=== PATIENT | male | born 1950 | race Caucasian/White ===

== ENCOUNTER 2017-01-01 08:27 | Outpatient (CLI) | payer MEDICARE, BC ==
[~2017-01-01] VITALS: Ht 182.9 cm; Wt 90.9 kg
--- NOTE | ~2017-01-01 | HEMODYNAMI ---
PATIENT:MARINA CRANDALL MEDICAL RECORD: [id number] : 48 LOCATION:D.CAT ADMISSION DATE: 01/01/17 Generatedon:01/01/201711:16 Patient name: MARINA CRANDALL Patient #: [id number] SSN: : 1950 Date of study: 01/01/2017 Page: Of Hemodynamic Procedure Report Patient Data Patient Demographics Procedure consent was obtained First Name: MARINA Gender: Male Last Name: KARLEY : 1950 [facility] Initial: E Age: 66 year(s) Patient #: [id number] Race: Additional ID: [id number] Contact details [address]: [address] [place] [address] State: [place] City: [place] Zip code: [address] Past Medical History Allergies Allergen Reaction Date Comments Reported Penicillins 06/16/2015 Other allergy 01/01/2017 n Admission Admission Data Admission Date: 01/01/2017 Admission Time: 8:27 Admit Source: Other Insurance Payor: Medicare, Private health insurance Height (in.): 72 BSA: 2.13 (m2) Height (cm.): 182.88 BMI: 27.12 (kg/m2) Weight (lbs.): 200 Weight (kg.): 90.72 Lab Results Lab Result Date: 01/01/2017 Lab Result Time: 8:55 Biochemistry Name Units Result Min Max BUN mg/dl 22 --(----)-* 7 18 Creatinine mg/dl 1.6 --(----)-* 0.6 1.3 CBC Name Units Result Min Max Hematocrit % 41.1 -*(----)-- 42 54 Hemoglobin g/dl 14.4 --(*---)-- 13.5 17.5 Procedure Procedure Types Cath Procedure Diagnostic Procedure LHC LHC w/Coronaries PCI Procedure Coronary Stent Initial Miscellaneous Procedures Moderate Sedation up to 45 minutes Procedure Description Procedure Date Procedure Date: 01/01/2017 Procedure Start Time: 10:54 Procedure End Time: 11:16 Procedure Staff Name Function Heladio Allen MD Performing Physician Nancy Deutsch RT Scrub Mayco Hackett RN Nurse Amrit Xavier RT Monitor Procedure Data Cath Procedure Fluoroscopy Diagnostic fluoroscopy Total fluoroscopy Time: 5.7 time: 5.7 min min Diagnostic fluoroscopy Total fluoroscopy dose: dose: 394.05 mGy 394.05 mGy Contrast Material Contrast Material Type Amount (ml) Isovue 300 117 Entry Location Entry Primary Successful Side Size Upsize Upsize Entry Closure Roberts ccessful Closure Location (Fr) 1 (Fr) 2 (Fr) Remarks Device Remarks Radial Right 6 Fr Mechanical artery Short Compression Estimated blood loss: 10 ml Diagnostic catheters Device Type Used For End Catheter Placement Terumo 5Fr [place] 110cm Procedure catheter Procedure Complications No complications Procedure Medications Medication Administration Route Dosage Oxygen NC 2 l/min Heparin Flush Bag added to field 2 bags (1000units/500ml NS) 0.9% NaCl I.V. 100 ml/hr Radial Cocktail added to field 1 syringe (Verapomil 2mg/Nitro 400mcg/Heparin 1500units) Fentanyl I.V. 50 mcg Versed I.V. 1 mg Radial Cocktail I.A. 1 syringe (Verapomil 2mg/Nitro 400mcg/Heparin 1500units) Fentanyl I.V. 50 mcg Versed I.V. 1 mg Heparin Bolus I.V. 4000 units Plavix P.O. 75 mg Hemodynamics Rest BSA: 2.13 (m2) HGB: 14.4 (g/dl) O2 Consumption: Estimated: 241.24 (ml/min) O2 Co nsumption indexed: Estimated:113.26 (ml/min/m) Heart Rate: 62 (bpm) Snapshots Pre Cath Intra NCS Post Cath Vital Signs Time Heart Resp SPO2 NIBP (mmHg) Rhythm Pain Sedation Rate (ipm) (%) Status Level (bpm) 10:38:56 66 17 98 127/84(102) NSR 0 (11) 10(A) , No pain 10:43:08 63 20 100 126/86(98) NSR 0 (11) 10(A) , No pain 10:47:20 64 16 99 122/81(100) NSR 0 (11) 10(A) , No pain 10:51:32 58 18 100 123/78(91) NSR 0 (11) 10(A) , No pain 10:55:48 59 18 97 112/63(95) NSR 0 (11) 9(A) , No pain 10:59:55 63 18 94 108/68(85) NSR 0 (11) 9(A) , No pain 11:04:05 62 18 94 112/64(85) NSR 0 (11) 9(A) , No pain 11:08:17 56 19 96 120/64(84) NSR 0 (11) 9(A) , No pain 11:12:33 58 18 98 105/68(79) NSR 0 (11) 9(A) , No pain 11:15:50 57 17 98 111/61(86) NSR 0 (11) 9(A) , No pain Medications Time Medication Route Dose Verified Delivered Reason Note s Effectiveness by by 10:42:50 Oxygen NC 2 l/min Mayco Mao Per physician Lew Hackett RN RN 10:43:07 Heparin Flush added 2 bags Mayco Mao used for Bag to Lew Hackett RN procedure (1000units/500ml RN NS) 10:43:21 0.9% NaCl I.V. 100 Mayco Paytony Per physician ml/hr Lew Hackett RN RN 10:51:53 Radial Cocktail added 1 Mayco Mao used for (Verapomil to syringe Lew Hackett RN procedure 2mg/Nitro field RN 400mcg/Heparin 1500units) 10:52:00 Fentanyl I.V. 50 mcg Mayco Mao for sedation Lew Hackett RN RN 10:52:08 Versed I.V. 1 mg Mayco Mao for sedation Lew Hackett RN RN 10:55:03 Radial Cocktail I.A. 1 Mayco Blairrey for (Verapomil syringe Lew Allen MD vasodilation 2mg/Nitro RN 400mcg/Heparin 1500units) 10:56:16 Fentanyl I.V. 50 mcg Mayco Mao for sedation Lew Hackett RN RN 10:56:21 Versed I.V. 1 mg Mayco Paytony for sedation Lew Hackett RN RN 11:01:22 Heparin Bolus I.V. 4000 Mayco Mao for units Lew Hackett RN anticoagulation RN 11:11:59 Plavix P.O. 75 mg Mayco Paytony for Hackett Hackett RN antiplatelet RN therapy Procedure Log Time Note 9:36:13 Informed consent obtained and on chart 9:37:19 Admit Source: Other 9:37:42 Insurance Payor : Private health insurance, Medicare 9:38:43 Diagnostic Cath status Elective 9:38:46 Time tracking: Regular hours 9:38:49 Plan of Care:Hemodynamics will remain stable., Cardiac rhythm will remain stable., Comfort level will be maintained., Respiratory function will remain adequate., Patient/ family verbilizes understanding of procedure., Procedure tolerated without complication., Recovers from procedure without complications.. 9:38:54 ACC Patient presents with Stable Angina CCS Anginal Class 2--Slight limitation of ordinary activity. 9:39:02 H&P Date Dictated: 12/14/2016 Within 30 days and on chart., H&P Addendum completed by physician on day of procedure. (MUST COMPLETE FOR ALL OUTPATIENTS). 10:18:45 Mayco Hackett RN sent for patient. Start room use. 10:31:09 Patient received from Pre/Post Procedure Room to CCL 3 Alert and oriented. Tansferred to table in Supine position. 10:31:10 Warm blankets applied, and toyin hugger turned on for patient comfort. 10:31:11 Correct patient and procedure confirmed by team. 10:31:11 ECG and BP/O2 sat monitors applied to patient. 10:37:50 Vital chart was started 10:42:50 Oxygen 2 l/min NC was administered by Myaco Hackett RN; Per physician; 10:43:07 Heparin Flush Bag (1000units/500ml NS) 2 bags added to field was administered by Mayco Hackett RN; used for procedure; 10:43:21 0.9% NaCl 100 ml/hr I.V. was administered by Mayco Hackett RN; Per physician; 10:45:40 Baseline sample Acquired. 10:45:44 Rhythm: sinus rhythm 10:45:46 Full Disclosure recording started 10:45:47 Pre-procedure instructions explained to patient. 10:45:48 Pre-op teaching completed and patient verbalized understanding. 10:45:49 Family in waiting room. 10:45:50 Patient NPO since Midnight. 10:45:57 Patient allergic to Other allergypcn 10:45:59 Is the patient allergic to Iodine/contrast media? No. 10:46:01 Is patient on blood thinner?Yes 10:46:03 ACC The patient was administered the following blood thiners within the last 24 hours: ACCPlavix 10:46:05 Patient diabetic? Yes. 10:46:06 If diabetic: On Metformin? Yes 10:46:09 If on Metformin: Last Dose? 12/30/2016 10:46:11 Previous problem with sedation/anesthesia? No ? 10:46:12 Snore? Yes 10:46:13 Sleep apnea? No 10:46:14 Deviated septum? No 10:46:15 Opens mouth fully? Yes 10:46:16 Sticks out tongue? Yes 10:46:17 Airway obstruction? No ? 10:46:38 Dentures? No ? 10:46:41 Modified Tyrese's test Ulnar < 7 seconds 10:46:44 Patient pain scale 0/10 ?. 10:46:47 IV patent on arrival in right forearm with 0.9% NaCl at [facility]. 10:47:32 Lab Result : BUN 22 mg/dl 10:47:32 Lab Result : Hemoglobin 14.4 g/dl 10:47:32 Lab Result : Creatinine 1.6 mg/dl 10:47:32 Lab Result : Hematocrit 41.1 % 10:47:34 Lab results completed and on chart. 10:47:36 Right Radial & Right Groin area was prepped with chlora-prep and draped in sterile fashion 10:47:37 Alarms reviewed by R. N. 10:47:37 Sharps counted by scrub and verified by R.N. 10:47:41 Use device set Radial Dx 10:47:42 Tegaderm 4 x 4 opened to sterile field. 10:47:43 Acist Manifold opened to sterile field. 10:47:43 Acist Hand Control opened to sterile field. 10:47:44 Acist Syringe opened to sterile field. 10:47:45 Medline Cath Pack opened to sterile field. 10:47:45 Bag Decanter opened to sterile field. 10:47:46 Terumo 6Fr Slender Glidesheath opened to sterile field. 10:47:46 [place] 260cm J .035 wire opened to sterile field. 10:48:09 Physician arrived 10:48:11 --------ALL STOP TIME OUT------ 10:48:12 Final Timeout: patient, procedure, and site verified with staff and physician. All members of the team are in agreement. 10:48:14 Right Radial & Right Groin site verified by team. 10:48:17 Physical assessment completed. ASA score P 2 - A patient with mild systemic disease as per Heladio Allen MD. 10:48:20 Sedation plan: IV Moderate Sedation Versed, Fentanyl 10:51:53 Radial Cocktail (Verapomil 2mg/Nitro 400mcg/Heparin 1500units) 1 syringe added to field was administered by Myaco Hackett RN; used for procedure; 10:52:00 Fentanyl 50 mcg I.V. was administered by Mayco Hackett RN; for sedation; 10:52:08 Versed 1 mg I.V. was administered by Mayco Hackett RN; for sedation; 10:52:32 Zero performed for pressure channel P1 10:52:36 Zero performed for pressure channel P1 10:54:12 Procedure started. 10:54:33 Local anesthetic to right radial artery with Lidocaine 2% by Heladio Allen MD.INITIAL ACCESS ONLY 10:55:00 A 6 Fr Short sheath was inserted into the Right Radial artery 10:55:03 Radial Cocktail (Verapomil 2mg/Nitro 400mcg/Heparin 1500units) 1 syringe I.A. was administered by Heladio Allen MD; for vasodilation; 10:55:12 Zero performed for pressure channel P1 10:55:18 Zero performed for pressure channel P1 10:55:30 Zero performed for pressure channel P1 10:55:38 Zero performed for pressure channel P1 10:56:16 Fentanyl 50 mcg I.V. was administered by Mayco Hackett RN; for sedation; 10:56:21 Versed 1 mg I.V. was administered by Mayco Hackett RN; for sedation; 10:56:25 A [employer] 5Fr [place] 110cm catheter was advanced over the wire and used for Procedure. 10:56:30 LV gram done using BURR 10:56:31 LV hemodynamics recorded. 10:56:34 Injector settings: Ml/sec: 5, Volume: 15, 10:56:40 EF : 60 % 10:57:02 Patient Height : 182.88 cm 10:57:11 Patient Weight : 90.72 kg 10:57:17 LCA angiography performed. 10:59:32 RCA angiography performed. 10:59:34 Catheter removed. 10:59:43 Cordis 6FR XBLAD 3.5 guide catheter opened to sterile field. 10:59:50 Topete Whisper J 300cm 0.014 guide wire opened to sterile field. 11:00:30 Avtal24 BasixCompak Inflation Kit opened to sterile field. 11:00:44 6 Fr xblad 3.5 guide catheter was inserted over the wire 11::22 Heparin Bolus 4000 units I.V. was administered by Mayco Hackett RN; for anticoagulation; 11:04:00 Guide Catheter removed. unable to get back-up support 11:04:31 Cordis 6FR XB 4.0 guide catheter opened to sterile field. 11:04:47 6 Fr xb 4 guide catheter was inserted over the wire 11:06:34 whisper wire advanced. 11:06:35 Wire advanced across lesion. 11:06:58 Inflation Number: 1 A Medtronic Resolute 2.25 X 12 stent was prepped and advanced across the Mid CX. The stent was deployed at 17 GERI for 0:10 (min:sec). 11:07:50 Stent catheter was removed intact over wire. 11:09:19 Inflation Number: 2 A Medtronic Resolute 2.5 X 18 stent was prepped and advanced across the Mid CX. The stent was deployed at 17 GERI for 0:10 (min:sec). 11:09:30 Stent catheter was removed intact over wire. 11:10:43 Stent catheter was removed intact over wire. 11:10:44 Wire removed. 11::44 Guide catheter removed. 11::59 Plavix 75 mg P.O. was administered by Mayco Hackett RN; for antiplatelet therapy; 11:13:07 Terumo TR Band Standard opened to sterile field. 11:13:17 Sheath removed intact; hemostasis achieved with Mechanical Compression to the Right Radial artery. 11:13:19 Procedure ended.(Physican Out) 11:13:30 Fluoroscopy time 05.70 minutes. 11:13:39 Fluoroscopy dose: 394.05 mGy 11:13:39 Flurop Dose total: 394.05 11:14:36 Contrast amount:Isovue 300 117ml. 11:14:37 Sharps counted by scrub and verified by R.N. 11:14:41 TR band inflated with 11cc of air. 11:14:43 Insertion/operative site no bleeding no hematoma. 11:14:49 Post right radial artery:stable, soft, clean and dry 11:14:52 Post Procedure Pulses reassessed and unchanged 11:15:00 Post-procedure physical assessment completed. ASA score P 2 - A patient with mild systemic disease as per Heladio Allen MD. 11:15:02 Post procedure rhythm: unchanged. 11:15:05 Estimated blood loss: 10 ml 11:15:06 Post procedure instruction explained to patient.Patient verbalizes understanding. 11:15:06 Patient needs reinforcement of post procedure teaching. 11:15:32 Procedure type changed to Cath procedure, Diagnostic procedure, LHC, LHC w/Coronaries, PCI procedure, Coronary Stent Initial, Miscellaneous Procedures, Moderate Sedation up to 45 minutes 11:16:08 Procedure and supply charges have been captured, reviewed, submitted and are correct. 11:16:10 Procedure Complication : No complications 11:16:12 Vital chart was stopped 11:16:12 See physician's report for complete and final results. 11:16:14 Report given to Pre/Post Procedure Room. 11:16:16 Patient transfered to Pre/Post Procedure Room with Stretcher. 11:16:17 Procedure ended. 11:16:17 Full Disclosure recording stopped 11:16:27 ACC-PCI Only Patient was given prescriptions, or instructed by Heladio Allen MD to start/continue the following medications upon discharge: Plavix 11:16:28 End room use (Document Last) Intervention Summary Intervention Notes Time ActionType Lesion and Equipment Action# Pressure Duration Attributes Used 11:06:58 Place stent Mid CX Medtronic 1 17 00:10 Resolute 2.25 X 12 stent 11:09:19 Place stent Mid CX Medtronic 2 17 00:10 Resolute 2.5 X 18 stent Device Usage Item Name Manufacture Quantity Catalog Hospital Part Current Minimal Lot# / Number Charge Number Stock Stock Serial# Code Tegaderm 4 1 [id number] 194126 [id number] 5 x 4 Acist Acist 1 91499 252043 357488 476694 5 Manifold Medical [employer] Inc Acist Hand Acist 1 53522 350550 011928 340613 5 Control Medical Systems Inc Acist Acist 1 16311 972509 500331 440908 20 Syringe Medical Systems Inc Medline Cardinal 1 [id number] 607332 38822 319261 5 Cath Pack Health Bag Microtek 1 2002S 093447 85884 234719 5 Decanter Medical Inc. Terumo 6Fr Terumo 1 [id number] 263199 786667 573887 [address] [facility] 1 080986 861872 664277 877838 30 260cm J .035 wire Terumo 5Fr Terumo 1 40-6140 963661 109038 115991 5 [place] 110cm catheter Cordis 6FR Cardinal 1 [id number] 262742 899422 636255 10 XBLAD 3.5 Health guide catheter Topete Topete 1 [id number] 510698 588282 517006 5 Whisper J Vascular 300cm 0.014 guide wire Merit Merit 1 [id number] 544311 067427 340187 15 BasixCompak Medical Inflation Kit Cordis 6FR Cardinal 1 [id number] 497043 862456 280677 2 XB 4.0 Health guide catheter Medtronic Medtronic 1 [id number] 071831 622734 4 [id number] Resolute 2.25 X 12 stent Medtronic Medtronic 1 [id number] 473294 906278 2 [id number] Resolute 2.5 X 18 stent Terumo TR Terumo 1 [id number] 563612 213198 496733 40 Band Standard Signature Audit [place] Stage Time Signature Unsigned Intra-Procedure 01/01/2017 Amrit Xavier 11:16:45 AM RT(R) Signatures Monitor : Amrit Xavier RT Signature : Date : Time : [facility] [address] [place] [address]
[~2017-01-01 08:27] MED LIST: AVAPRO150 MG PO; BAYER CHEWABLE81 MG PO; GLUCOPHAGE500 MG PO; HYDROCHLOROTHIA25 MG PO; LOVASTATIN20 MG PO; ONGLYZA5 MG PO; PLAVIX75 MG PO
[2017-01-01] MEDS ORDERED: PACERONE200 MG PO (08:53)
[2017-01-01 08:59] VITALS: BP 146/72; Ht 182.9 cm; Wt 90.9 kg
[2017-01-01 09:31] LABS: BASOPHILS 0.3 % (0.0-2.0); EOSINOPHILS 1.8 % (0-7); HEMATOCRIT 41.1 % (42.0-54.0); HEMOGLOBIN 14.4 g/dL (13.5-17.5); IMMATURE GRANULOCYTES 0.3 % (0-5); LYMPHOCYTES 16.4 % (15-50); MCH 30.1 pg (26.0-34.0); MCV 85.8 fL (80.0-100.0); MEAN PLATELET VOLUME 10.1 fL (7.4-10.4); MONOCYTES 7.2 % (2-11); PLATELET COUNT 190 10x3/uL (130-400); RBC 4.79 10x6/uL (4.20-6.10); WBC 6.7 10x3/uL (4.8-10.8)
[2017-01-01 09:52] LABS: CALCIUM 9.4 mg/dL (8.5-10.1); CARBON DIOXIDE 30.1 mmol/L (21.0-32.0); CREATININE - SERUM 1.6 mg/dL (0.6-1.3); POTASSIUM - SERUM 4.1 mmol/L (3.5-5.1)
--- NOTE | 2017-01-01 11:46 | NUR ---
VSS WITH CHEST PAIN DENIED TR BAND TO R/WRIST CDI NO BLEEDING NO HEMATOMA NOTED INSTRUCTED PATIENT TO KEEP RUE STRAIGHT NO BENDING OR FLEXING OF WRIST
--- NOTE | 2017-01-01 12:21 | NUR ---
NSR W NO C/O CHEST PAIN. PULSES PALP X 4. R WRIST TR BAND C/D/I WITH NO HEMATOMA OR BLEEDING. AT BEDSIDE. TAUTH AT BEDSIDE TO DISCUSS RESULTS WITH PATIENT. PATIENT TO RETURN NEXT SUNDAY FOR PCI.
--- NOTE | 2017-01-01 12:54 | NUR ---
NSR WITH CHEST PAIN DENIED TR BAND TO R/WRIST CDI NO BLEEDING NO HEMATOMA NOTED
--- NOTE | 2017-01-01 13:39 | NUR ---
VSS WITH CHEST PAIN DENIED TR BAND TO R/WRIST CDI NO BLEEDING NO HEMATOMA NOTED FAMILY AT SIDE
--- NOTE | 2017-01-01 14:12 | NUR ---
NO CHANGE IN ASSESSMENT VSS
--- NOTE | 2017-01-01 14:28 | NUR ---
2 CC AIR REMOVED FROM TR BAND WITH NO BLEEDING NOTED
--- NOTE | 2017-01-01 15:03 | NUR ---
2 CC AIR REMOVED FROM TR BAND WITH NO BLEEDING NOTED. PIV REMOVED WITH DRESSING APPLIED. CHEST PAIN IS DENIED PATIENT UP TO GET DRESSED FOR DISCHARGE HOME
--- NOTE | 2017-01-01 15:44 | NUR ---
TR BAND REMOVED WITH NO BLEEDING NO HEMATOMA NOTED. DISCHARGE INSTRUCTIONS GONE OVER WITH PATIENT AND . LEFT VIA WC TO PARKING FOR TRANSPORT HOME
--- NOTE | 2017-01-09 14:37 | OP ---
PATIENT NAME: MARINA CRANDALL MEDICAL RECORD: [id number] :48 LOCATION:D.CAT ADMISSION DATE: SURGEON: DORIS TILLMAN MD DATE OF OPERATION: 01/01/2017 PROCEDURES: 1. PTCA stent left circumflex. 2. Left heart catheterization. 3. Selective coronary angiography. 4. Left ventriculogram. PROCEDURE IN DETAIL: After informed consent was obtained and after a detailed explanation of the risks, benefits as well as alternative therapies, the patient elected to proceed with angiogram and angioplasty. The right radial area was prepped and draped in normal sterile fashion. The right radial artery was cannulated via modified Seldinger technique with placement of 6-Telugu sheath. All catheters exchanged through this sheath. FINDINGS: The left ventriculogram was performed in standard 30-degree BURR view reveals preserved cardiac wall motion, ejection fraction is 60%. SELECTIVE CORONARY ANGIOGRAPHY: 1. Left main showed no significant angiographic disease. 2. Left anterior descending has previously placed stent that is patent; however, the diagonal has a new 90% stenosis. 3. The left circumflex has 80% to 90% stenosis in the mid and mid distal vessel. 4. 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 There is a hazy area in the mid vessel that would be better delineated by intravascular ultrasound. PTCA STENT OF THE LEFT CIRCUMFLEX: The stent used was a 2.5 x 18 and a 2.25 x 12 both Resolute stents. Result was 0% residual stenosis. OVERALL IMPRESSION: Successful percutaneous transluminal coronary angioplasty stent of the left circumflex going from 90% initial stenosis to 0% residual. PLAN: Intravascular ultrasound of the RCA and PTCA stent of the LAD diagonal in the near future. TRANSINT:[id number] Voice Confirmation ID: [id number] DOCUMENT ID: [id number] DORIS TILLMAN MD at 1437 CC: [id number] DICTATION DATE: 01/01/17 1113 STAGE SETTINGS PAINTER: 01/01/17 1313 DEP CLI 01/01/17 [place] [id number]
== END 2017-01-01 15:48 ==
LOC: D.CATH 08:27
PROVIDERS: Internal Medicine Interventional Cardiology
DX: I25.119 Atherosclerotic heart disease of native coronary artery with unspecified angina pectoris (principal)
CPT/HCPCS: 93458; C9600

== ENCOUNTER 2017-01-08 08:36 | Outpatient (CLI) | payer MEDICARE, BC ==
[~2017-01-08] VITALS: Ht 182.9 cm; Wt 90.9 kg
--- NOTE | ~2017-01-08 | HEMODYNAMI ---
PATIENT:MARINA CRANDALL MEDICAL RECORD: [id number] : 48 LOCATION:D.CAT ADMISSION DATE: 01/08/17 Generatedon:01/08/201710:38 Patient name: MARINA CRANDALL Patient #: [id number] SSN: : 1950 Date of study: 01/08/2017 Page: Of Hemodynamic Procedure Report Patient Data Patient Demographics Procedure consent was obtained First Name: MARINA Gender: Male Last Name: KARLEY : 1950 Middle Initial: E Age: 66 year(s) Patient #: [id number] Race: Additional ID: [id number] Contact details Address: [address] [place] [address] State: [place] City: [place] Zip code: [address] Past Medical History Allergies Allergen Reaction Date Comments Reported Penicillins 06/16/2015 Other allergy 01/01/2017 pcn Penicillins 01/08/2017 Admission Admission Data Admission Date: 01/08/2017 Admission Time: 8:36 Height (in.): 72 BSA: 2.13 (m2) Height (cm.): 182.88 BMI: 27.12 (kg/m2) Weight (lbs.): 200 Weight (kg.): 90.72 Lab Results Lab Result Date: 01/08/2017 Lab Result Time: 0:00 Biochemistry Name Units Result Min Max BUN mg/dl 26 --(----)-* 7 18 Creatinine mg/dl 1.5 --(----)-* 0.6 1.3 CBC Name Units Result Min Max Hemoglobin g/dl 15.6 --(--*-)-- 13.5 17.5 Procedure Procedure Types Cath Procedure Diagnostic Procedure FFR/IVUS Intra-Coronary IVUS Initial PCI Procedure Coronary Stent Initial Miscellaneous Procedures Moderate Sedation up to 15 minutes Procedure Description Procedure Date Procedure Date: 01/08/2017 Procedure Start Time: 10:25 Procedure End Time: 10:37 Procedure Staff Name Function Heladio Allen MD Performing Physician Mehreen Bates RN Nurse Anthony Urbano RT Monitor Dioni Rey RT Scrub Procedure Data Cath Procedure Fluoroscopy Diagnostic fluoroscopy Total fluoroscopy Time: 2.1 time: 2.1 min min Diagnostic fluoroscopy Total fluoroscopy dose: 209 dose: 209 mGy mGy Contrast Material Contrast Material Type Amount (ml) Isovue 300 43 Entry Location Entry Primary Successful Side Size Upsize Upsize Entry Closure Roberts ccessful Closure Location (Fr) 1 (Fr) 2 (Fr) Remarks Device Remarks Radial Right 6 Fr Mechanical artery Short Compression Procedure Complications No complications Procedure Medications Medication Administration Route Dosage Oxygen NC 2 l/min Heparin Flush Bag added to field 2 bags (1000units/500ml NS) Lidocaine 2% added to field 20 Radial Cocktail added to field 1 syringe (Verapomil 2mg/Nitro 400mcg/Heparin 1500units) Versed I.V. 1 mg Fentanyl I.V. 50 mcg Versed I.V. 1 mg Fentanyl I.V. 50 mcg Versed I.V. 0.5 mg Fentanyl I.V. 50 mcg Heparin Bolus I.V. 4000 units Radial Cocktail I.A. 1 syringe (Verapomil 2mg/Nitro 400mcg/Heparin 1500units) Hemodynamics Rest BSA: 2.13 (m2) HGB: 15.6 (g/dl) O2 Consumption: Estimated: 244.98 (ml/min) O2 Co nsumption indexed: Estimated:115.01 (ml/min/m) Heart Rate: 67 (bpm) Snapshots Pre Cath Intra NCS Post Cath Vital Signs Time Heart Resp SPO2 NIBP (mmHg) Rhythm Pain Sedation Rate (ipm) (%) Status Level (bpm) 10:10:14 68 16 99 125/76(96) NSR 0 (11) 10(A) , No pain 10:14:24 66 13 99 135/78(97) NSR 0 (11) 10(A) , No pain 10:18:39 62 16 96 115/75(94) NSR 0 (11) 10(A) , No pain 10:22:48 59 17 97 127/64(106) NSR 0 (11) 10(A) , No pain 10:27:06 60 16 96 113/55(83) NSR 0 (11) 9(A) , No pain 10:31:14 67 16 98 104/67(99) NSR 0 (11) 9(A) , No pain 10:34:57 63 15 96 124/59(102) NSR 0 (11) 9(A) , No pain Medications Time Medication Route Dose Verified Delivered Reason Note s Effectiveness by by 10:10:05 Oxygen NC 2 l/min Heladio Mehreen Per physician Alejandro Bates RN 10:10:13 Heparin Flush added 2 bags Heladio Leija used for Bag to Alejandro Allen MD procedure (1000units/500ml field NS) 10:10:22 Lidocaine 2% added 20ml Heladio Heladio used for to vial Alejandro Allen MD procedure field 10:10:29 Radial Cocktail added 1 Heladio Heladio used for (Verapomil to syringe Alejandro Allen MD procedure 2mg/Nitro field 400mcg/Heparin 1500units) 10:22:18 Versed I.V. 1 mg Heladio Mehreen for anxiety Alejandro Bates RN 10:22:25 Fentanyl I.V. 50 mcg Heladio Mehreen for sedation Alejandro Bates RN 10:24:27 Versed I.V. 1 mg Heladio Mehreen for anxiety Alejandro Bates RN 10:24:43 Fentanyl I.V. 50 mcg Heladio Mehreen for sedation Alejandro Bates RN 10:25:45 Radial Cocktail I.A. 1 Heladio Heladio for hypokalemia (Verapomil syringe Alejandro Allen MD 2mg/Nitro 400mcg/Heparin 1500units) 10:27:30 Versed I.V. 0.5 mg Heladio Mehreen for sedation Alejandro Bates RN 10:27:38 Fentanyl I.V. 50 mcg Heladio Mehreen for sedation Alejandro Bates RN 10:27:47 Heparin Bolus I.V. 4000 Heladio Mehreen for dose units Alejandro Bates RN anticoagulation verified [facility] dr allen Procedure Log Time Note 9:57:02 Dioni Rey RT(R) sent for patient. Start room use. 9:57:03 Time tracking: Regular hours 9:57:08 Plan of Care:Hemodynamics will remain stable., Cardiac rhythm will remain stable., Comfort level will be maintained., Respiratory function will remain adequate., Patient/ family verbilizes understanding of procedure., Procedure tolerated without complication., Recovers from procedure without complications.. 10:09:09 Vital chart was started 10:10:05 Oxygen 2 l/min NC was administered by Mehreen Bates RN; Per physician; 10:10:13 Heparin Flush Bag (1000units/500ml NS) 2 bags added to field was administered by Heladio Allen MD; used for procedure; 10:10:22 Lidocaine 2% 20ml vial added to field was administered by Heladio Allen MD; used for procedure; 10:10:29 Radial Cocktail (Verapomil 2mg/Nitro 400mcg/Heparin 1500units) 1 syringe added to field was administered by Heladio Allen MD; used for procedure; 10:16:44 Patient received from Pre/Post Procedure Room to CCL 2 Alert and oriented. Tansferred to table in Supine position. 10:16:45 Warm blankets applied, and toyin hugger turned on for patient comfort. 10:16:46 Correct patient and procedure confirmed by team. 10:16:47 Signed procedure consent form obtained from patient. 10:16:48 ECG and BP/O2 sat monitors applied to patient. 10:16:49 Baseline sample Acquired. 10:16:51 Rhythm: sinus rhythm 10:16:52 Full Disclosure recording started 10:17:30 H&P Date Dictated: 01/08/2017 Within 30 days and on chart., H&P Addendum completed by physician on day of procedure. (MUST COMPLETE FOR ALL OUTPATIENTS). 10:17:31 Pre-procedure instructions explained to patient. 10:17:32 Pre-op teaching completed and patient verbalized understanding. 10:17:34 Family in patients room. 10:17:36 Patient NPO since Midnight. 10:17:42 Patient allergic to Penicillins 10:17:44 Is the patient allergic to Iodine/contrast media? No. 10:17:48 Is patient on blood thinner?Yes 10:17:50 ACC The patient was administered the following blood thiners within the last 24 hours: ACCPlavix 10:17:52 Patient diabetic? Yes. 10:17:53 If diabetic: On Metformin? Yes 10:17:56 If on Metformin: Last Dose? 01/06/2017 10:17:57 ----Pre-sedation anethsthesia assessment.---- 10:17:59 Previous problem with sedation/anesthesia? No ? 10:18:00 Snore? Yes 10:18:02 Sleep apnea? Yes 10:18:03 Deviated septum? No 10:18:04 Opens mouth fully? Yes 10:18:05 Sticks out tongue? Yes 10:18:07 Airway obstruction? No ? 10:18:09 Dentures? No ? 10:18:11 Pre procedure: right dorsailis pedis pulse 2+ Normal; easily identifiable; not easily obliterated 10:18:13 Modified Tyrese's test Ulnar < 7 seconds 10:18:16 Patient pain scale 0/10 ?. 10:18:21 IV patent on arrival in left hand with 0.9% NaCl at 10ml/hr. 10:19:51 Lab Result : BUN 26 mg/dl 10:19:51 Lab Result : Creatinine 1.5 mg/dl 10:19:51 Lab Result : Hemoglobin 15.6 g/dl 10:19:54 Lab results completed and on chart. 10:19:57 Right Radial & Right Groin area was prepped with chlora-prep and draped in sterile fashion 10:19:58 Alarms reviewed by R. N. 10:19:58 Sharps counted by scrub and verified by R.N. 10:19:59 Physician paged 10:20:05 Use device set Radial PCI 10:20:06 Acist Syringe opened to sterile field. 10:20:07 Acist Hand Control opened to sterile field. 10:20:07 Bag Decanter opened to sterile field. 10:20:07 Medline Cath Pack opened to sterile field. 10:20:08 Merit BasixCompak Inflation Kit opened to sterile field. 10:20:08 Terumo 6Fr Slender Glidesheath opened to sterile field. 10:20:09 [place] 260cm Straight .035 wire opened to sterile field. 10:20:10 Acist Manifold opened to sterile field. 10:20:10 Tegaderm 4 x 4 opened to sterile field. 10:20:19 Topete Whisper J 300cm 0.014 guide wire opened to sterile field. 10:20:20 [place]ag[place]e IVUS Catheter opened to sterile field. 10:21:51 --------ALL STOP TIME OUT------ 10:21:51 Final Timeout: patient, procedure, and site verified with staff and physician. All members of the team are in agreement. 10::53 Right Radial & Right Groin site verified by team. 10::56 Physical assessment completed. ASA score P 2 - A patient with mild systemic disease as per Heladio Allen MD. 10:22:00 Sedation plan: IV Moderate Sedation Versed, Fentanyl 10::18 Versed 1 mg I.V. was administered by Mehreen Bates RN; for anxiety; 10::25 Fentanyl 50 mcg I.V. was administered by Mehreen Bates RN; for sedation; 10::27 Versed 1 mg I.V. was administered by Mehreen Bates RN; for anxiety; 10::43 Fentanyl 50 mcg I.V. was administered by Mehreen Bates RN; for sedation; 10::06 Procedure started. 10::23 Local anesthetic to right femoral artery with Lidocaine 2% by Heladio Allen MD.INITIAL ACCESS ONLY 10:25:34 A 6 Fr Short sheath was inserted into the Right Radial artery 10::39 Zero performed for pressure channel P1 10::45 Radial Cocktail (Verapomil 2mg/Nitro 400mcg/Heparin 1500units) 1 syringe I.A. was administered by Heladio Allen MD; for hypokalemia; 10::14 6 Fr AR 2 guide catheter was inserted over the wire 10::22 Medtronic Launcher 6Fr AR 2.0 guide catheter opened to sterile field. 10:27:06 WHISPER wire advanced. 10:27:09 FFR/IVUS 10:27:10 IVUS catheter advanced over wire. 10:27:12 IVUS pass to RCA lesion performed. 10::30 Versed 0.5 mg I.V. was administered by Mehreen Bates RN; for sedation; 10::38 Fentanyl 50 mcg I.V. was administered by Mehreen Bates RN; for sedation; 10::47 Heparin Bolus 4000 units I.V. was administered by Mehreen Bates RN; for anticoagulation; dose verified wtih dr allen 10:30:04 IVUS catheter removed over wire. 10:30:14 ACC PCI Site: mRCA has 74.2% stenosis. 10:30:18 ACC Pre-intervention SHAWN Flow is 3. 10:30:59 Patient Height : 182.88 cm 10:31:00 Patient Weight : 90.72 kg 10:31:47 Inflation Number: 1 A Medtronic Integrity 3.5 X 22 stent was prepped and advanced across the Mid RCA. The stent was deployed at 17 GERI for 0:12 (min:sec). 10:32:16 ACC Post-intervention SHAWN Flow is 3. 10:32:16 Stent catheter was removed intact over wire. 10:32:17 Wire removed. 10:32:18 Guide catheter removed. 10:32:23 Contrast amount:Isovue 300 43ml. 10:32:29 Sheath removed intact; hemostasis achieved with Mechanical Compression to the Right Radial artery. 10:32:30 Procedure ended.(Physican Out) 10:33:32 Fluoroscopy time 02.10 minutes. 10:33:36 Fluoroscopy dose: 209 mGy 10:33:36 Flurop Dose total: 209 10:33:37 Sharps counted by scrub and verified by R.N. 10:33:39 TR band inflated with 10cc of air. 10:33:40 Insertion/operative site no bleeding no hematoma. 10:33:47 Post right radial artery:stable 10:33:48 Post Procedure Pulses reassessed and unchanged 10:33:51 Post procedure rhythm: sinus rhythm 10:33:53 Post procedure instruction explained to patient.Patient verbalizes understanding. 10:34:30 Terumo TR Band Standard opened to sterile field. 10:36:00 Procedure and supply charges have been captured, reviewed, submitted and are correct. 10:36:11 Procedure Complication : No complications 10:37:18 Vital chart was stopped 10:37:18 See physician's report for complete and final results. 10:37:20 Report given to Pre/Post Procedure Room. 10:37:23 Patient transfered to Pre/Post Procedure Room with Stretcher. 10:37:25 Procedure ended. 10:37:25 Full Disclosure recording stopped 10:37:28 End room use (Document Last) Intervention Summary Intervention Notes Time ActionType Lesion and Equipment Action# Pressure Duration Attributes Used 10::47 Place stent Mid RCA Medtronic 1 17 00:12 Integrity 3.5 X 22 stent Device Usage Item Name Manufacture Quantity Catalog Hospital Part Current Minimal Lot# / Number Charge Number Stock Stock Serial# Code Acist Acist 1 39079 213808 613990 262198 20 Syringe Medical Systems Inc Acist Hand Acist 1 96963 576862 090579 121067 5 Control Medical Systems Inc Bag Microtek 1 2002S 644325 53489 294495 5 Decanter Medical Inc. Medline Cardinal 1 [id number] 628249 34822 963175 5 Browsarity [facility] Merit 1 [id number] 815251 116160 804839 15 Wecash Medical Inflation Kit Terumo 6Fr Terumo 1 [id number] 443406 959187 576222 [address] [place] 1 604926 542189 269183 380039 1 260cm Straight .035 wire Acist Acist 1 45607 328503 761543 346178 5 Manifold Medical Systems Inc Tegaderm 4 3M 1 1626W 664434 629970 051075 5 x 4 Topete Topete 1 [id number] 067109 349335 378941 5 Whisper J Vascular 300cm 0.014 guide wire [place] 1 [id number] 506006 975902 401295 8 [place] IVUS Catheter Medtronic Medtronic 1 [id number] 550912 34060 669846 1 Launcher 6Fr AR 2.0 guide catheter Medtronic Medtronic 1 [id number] 558316 318056 7 [id number] Integrity 3.5 X 22 stent Terumo TR Terumo 1 [id number] 654938 592015 029542 40 Band Standard Signature Audit [place] Stage Time Signature Unsigned Intra-Procedure 01/08/2017 Anthony Urbano 10:38:19 AM RT(R) Signatures Monitor : Anthony Urbano RT Signature : Date : Time : [facility] [address] [place] [address]
[~2017-01-08 08:36] MED LIST changes: +PACERONE200 MG PO
[2017-01-08 08:54] VITALS: BP 145/82; Ht 182.9 cm; Wt 90.9 kg
[2017-01-08 09:10] LABS: BASOPHILS 0.3 % (0.0-2.0); EOSINOPHILS 2.3 % (0-7); HEMOGLOBIN 15.6 g/dL (13.5-17.5); IMMATURE GRANULOCYTES 0.6 % (0-5); MCHC 34.7 g/dL (31.0-37.0); MCV 86.5 fL (80.0-100.0); MEAN PLATELET VOLUME 10.3 fL (7.4-10.4); MONOCYTES 7.3 % (2-11); NEUTROPHILS 71.5 % (40-80); PLATELET COUNT 205 10x3/uL (130-400); WBC 7.9 10x3/uL (4.8-10.8)
[2017-01-08 09:22] LABS: ANION GAP 11.4 mmol/L (8-16); CALCIUM 9.8 mg/dL (8.5-10.1); CARBON DIOXIDE 32.5 mmol/L (21.0-32.0); CREATININE - SERUM 1.5 mg/dL (0.6-1.3); POTASSIUM - SERUM 3.9 mmol/L (3.5-5.1)
--- NOTE | 2017-01-08 11:01 | NUR ---
1055 RECEIVED PT FROM PPAP COORDINATOR. PT IS DROWSY, DENIES ANY C/O AT THIS TIME. TR BAND CDI TO RIGHT WRIST, NO BLEEDING OR HEMATOMA NOTED. FINGERS WARM TO TOUCH, CAP REFILL IS BRISK. VSS. SINUS RHYTHM RATE 62. AT BEDSIDE. PO FLUIDS SERVED.
--- NOTE | 2017-01-08 11:26 | NUR ---
1110 PT DENIES ANY C/O. TR BAND CDI, NO BLEEDING OR HEMATOMA NOTED. AT BEDSIDE, CALL LIGHT IN REACH.
--- NOTE | 2017-01-08 12:00 | NUR ---
1140 PT DENIES ANY C/O. TR BAND CDI, NO BLEEDING OR HEMATOMA NOTED. [place] TRAY SERVED. CALL LIGHT IN REACH
--- NOTE | 2017-01-08 13:35 | NUR ---
1330 TR BAND DEFLATION BEGUN, 2 CC OF AIR REMOVED WITH NO BLEEDING OR HEMATOMA NOTED. PT DENIES ANY C/O AT THIS TIME. AT BEDSIDE.
--- NOTE | 2017-01-08 16:22 | NUR ---
1415-TR BAND OFF-NO BLEEDING OR HEMATOMA NOTED, BANDAID TO SITE, IV D'C WITH CATH TIP INTACT, WRITTEN AND VERBAL INSTRUCTIONS GIVEN TO PT AND . VERBAL UNDERSTANDING NOTED. DENIES FURTHUR NEEDS AT THIS TIME.
--- NOTE | 2017-01-09 14:38 | OP ---
PATIENT NAME: MARINA CRANDALL MEDICAL RECORD: [id number] :48 LOCATION:D.CAT ADMISSION DATE: SURGEON: DORIS TILLMAN MD DATE OF OPERATION: 01/08/2017 PROCEDURES: 1. PTCA stent RCA. 2. Selective coronary angiography. 3. Intravascular ultrasound RCA. INDICATION: Angina and coronary artery disease. PROCEDURE IN DETAIL: After informed consent was obtained and after detailed explanation of risks, benefits as well as alternative therapies, the patient elected to proceed with angiogram and angioplasty. The right radial area was prepped and draped in normal sterile fashion. The right radial artery was cannulated via modified Seldinger technique with placement of 6-Japanese sheath. All catheters were exchanged through this sheath. FINDINGS: The right coronary has greater than 75% stenosis confirmed by intravascular ultrasound in the mid vessel. This was addressed with a 3.5 x 22 mm Integrity stent. Result was 0% residual stenosis. OVERALL IMPRESSION: Successful percutaneous transluminal coronary angioplasty stent of the right coronary artery going from 75% initial stenosis to 0% residual. TRANSINT:[id number] Voice Confirmation ID: [id number] DOCUMENT ID: [id number] DORIS TILLMAN MD at 1438 CC: [id number] DICTATION DATE: 01/08/17 1037 [employer] PRODUCTION SUPERVISOR: 01/08/17 1233 [facility] CLI 01/08/[address] [address]
--- NOTE | 2017-01-09 14:38 | HP ---
PATIENT: MARINA YOUSIF MEDICAL RECORD: [id number] ACCOUNT: [id number] LOCATION:MRACY : 48 ADMISSION DATE: 01/08/17 HISTORY AND PHYSICAL EXAMINATION DIAGNOSES: 1. Angina. 2. Coronary artery disease. 3. Recent percutaneous transluminal coronary angioplasty stent of the left circumflex with concomitant disease of the right coronary artery and left anterior descending diagonal. 4. Paroxysmal atrial fibrillation. 5. Hypertension. 6. Hyperlipidemia. 7. Noninsulin-dependent diabetes. HISTORY OF PRESENT ILLNESS: Mr. Yousif presents with anginal symptomatology, found to have 3-vessel coronary artery disease, underwent successful PTCA stent of the left circumflex. He is now brought back for intravascular ultrasound of the RCA as well as possible transcatheter revascularization of the LAD diagonal. PHYSICAL EXAMINATION: GENERAL APPEARANCE: Well-nourished, well-developed, appears stated age. Level of distress, comfortable. PSYCHIATRIC: Mental status, alert, normal affect. Orientation, oriented to time, place and person. EYES: Lids and conjunctiva, noninjected. No discharge, no pallor. ENT: Lips, teeth, gums, normal dentition. Oropharynx, no cyanosis, no pallor. NECK: Carotid arteries, bilateral normal upstroke, no bruits, no thrills. JUGULAR VEINS: No jugular venous pressure or distention. CERVICAL LYMPH NODES: Nontender, nonenlarged. THYROID: Not enlarged. Nontender. No nodules. LUNGS: Respiratory effort, unlabored. CHEST: Normal curvature. No thoracic deformity. No chest wall tenderness. Percussion, resonant. Auscultation, clear. No wheezes, no rales, no rhonchi. CARDIOVASCULAR: Precordial exam, nondisplaced. No heaves or pericardial thrills. Rate and rhythm, regular. Heart sounds, normal S1, normal S2. No S3, no gallop, no rub. Systolic murmur, not heard. Diastolic murmur, not heard. EXTREMITIES: No cyanosis, no edema. Peripheral pulses, full and equal in all extremities, except as noted. No bruits appreciated. ABDOMEN: Soft, nondistended. Normal aorta. No bruit. Nontender. No masses. Liver, nontender, no hepatomegaly. Spleen, nontender, no splenomegaly. MUSCULOSKELETAL: No joint tenderness. No joint swelling. No erythema. NEUROLOGICAL: Normal gait, normal strength, normal tone. SKIN: Warm and dry. REVIEW OF SYSTEMS: The patient reports easy bruising but reports no swollen glands. The patient reports no fever, no night sweats, no significant weight gain, no significant weight loss. No significant exercise tolerance. The patient reports no dry eyes, no irritation, no vision change. Patient reports no difficulty hearing and no ear pain. Patient reports no frequent nose bleeds or nose and sinus problems. Patient reports on arm pain on exertion. No shortness of breath while lying down. No history of heart murmur. Patient reports no cough, no wheezing or coughing up blood. Patient reports no abdominal pain, no vomiting. Normal appetite. No diarrhea and not vomiting HISTORY AND PHYSICAL [id number] MARINA YOUSIF blood. No nausea and no constipation. Patient reports no incontinence. No difficulty urinating. No hematuria. No increased frequency. Patient reports no muscle aches. No weakness, no arthralgias, no back pain. No swelling of the extremities. Patient reports no abnormal mole, no jaundice, no rashes. Reports no loss of consciousness. No weakness and no numbness. No seizures, dizziness, or headaches. The patient reports no depression, no sleep disturbance, feeling safe in a relationship and no alcohol abuse. Patient reports on fatigue. Reports no runny nose or sinus pressure. No itching, no hives, and no frequent sneezing. OVERALL IMPRESSION: Anginal symptomatology, 3-vessel coronary artery disease. We will proceed with transcatheter revascularization. TRANSINT:[id number] Voice Confirmation ID: [id number] DOCUMENT ID: [id number] DORIS TILLMAN MD at 1438 CC: [id number] DICTATION DATE: 01/08/17 0938 HEDIS REVIEW NURSE: 01/08/17 1022 DEP CLI 01/08/17 [facility] [address] [place] [address]
== END 2017-01-08 14:30 | disposition home or self-care (01) ==
LOC: D.CATH 08:36
PROVIDERS: Internal Medicine Interventional Cardiology
DX: I25.119 Atherosclerotic heart disease of native coronary artery with unspecified angina pectoris (principal); Z95.5 Presence of coronary angioplasty implant and graft; I48.0 Paroxysmal atrial fibrillation; I10 Essential (primary) hypertension; E78.5 Hyperlipidemia, unspecified; E11.9 Type 2 diabetes mellitus without complications

== ENCOUNTER → 2017-07-30 08:00 | Outpatient (CLI) | payer MEDICARE, BC ==
--- NOTE | ~2017-07-30 | HEMODYNAMI ---
PATIENT:MARINA CRANDALL MEDICAL RECORD: [id number] : 48 LOCATION:D.CAT ADMISSION DATE: 07/30/17 Generatedon:07/30/201710:03 Patient name: MARINA CRANDALL Patient #: [id number] SSN: : 1950 Date of study: 07/30/2017 Page: Of Hemodynamic Procedure Report Patient Data Patient Demographics Procedure consent was obtained First Name: MARINA Gender: Male Last Name: KARLEY : 1950 [facility] Initial: E Age: 67 year(s) Patient #: [id number] Race: Additional ID: [id number] Contact details [address]: [address] [place] [address] State: [place] City: [place] Zip code: [address] Past Medical History Allergies Allergen Reaction Date Comments Reported Penicillins 06/16/2015 Other allergy 01/01/2017 pcn Penicillins 01/08/2017 Penicillins 07/30/2017 Admission Admission Data Admission Date: 07/30/2017 Admission Time: 8:00 Procedure Procedure Types Cath Procedure Diagnostic [facility] PCI Procedure Coronary Stent Initial PTCA Additional Miscellaneous Procedures Moderate Sedation up to 30 minutes Procedure Description Procedure Date Procedure Date: 07/30/2017 Procedure Start Time: 9:44 Procedure End Time: 10:02 Procedure Staff Name Function Heladio Allen MD Performing Physician Kacie Muller RT Scrub Gregoria Avalos RN Nurse Nancy Deutsch RT Monitor Procedure Data Cath Procedure Fluoroscopy Diagnostic fluoroscopy Total fluoroscopy Time: 4.2 time: 4.2 min min Diagnostic fluoroscopy Total fluoroscopy dose: 780 dose: 780 mGy mGy Contrast Material Contrast Material Type Amount (ml) Isovue 300 99 Entry Location Entry Primary Successful Side Size Upsize Upsize Entry Closure Roberts ccessful Closure Location (Fr) 1 (Fr) 2 (Fr) Remarks Device Remarks Radial Right 6 Fr Mechanical artery Short Compression Estimated blood loss: 10 ml Diagnostic catheters Device Type Used For End Catheter Placement Terumo 5Fr Pako 110cm LV Angiography catheter Terumo 5Fr Pako 110cm Left Coronary catheter Angiography Terumo 5Fr Pako 110cm Right Coronary catheter Angiography Procedure Complications No complications Procedure Medications Medication Administration Route Dosage Oxygen NC 2 l/min Lidocaine 2% added to field 20 Heparin Flush Bag added to field 2 bags (1000units/500ml NS) Radial Cocktail added to field 1 syringe (Verapomil 2mg/Nitro 400mcg/Heparin 1500units) Fentanyl I.V. 50 mcg Versed I.V. 1 mg Radial Cocktail I.A. 1 syringe (Verapomil 2mg/Nitro 400mcg/Heparin 1500units) Fentanyl I.V. 25 mcg Versed I.V. 0.5 mg Heparin Bolus I.V. 4000 units Plavix P.O. 75 mg Hemodynamics Rest Heart Rate: 63 (bpm) Snapshots Pre Cath Intra NCS Post Cath Vital Signs Time Heart Resp SPO2 etCO2 NIBP (mmHg) Rhythm Pain Sedation Rate (ipm) (%) (mmHg) Status Level (bpm) 9:24:41 63 19 100 39.4 139/88(111) NSR 0 (11) 10(A) , No pain 9:28:54 62 20 100 35.6 129/86(119) NSR 0 (11) 10(A) , No pain 9:33:09 60 16 99 39.4 132/84(96) NSR 0 (11) 10(A) , No pain 9:37:20 61 17 100 37.2 130/87(104) NSR 0 (11) 10(A) , No pain 9:41:30 63 16 95 31.1 118/85(98) NSR 0 (11) 9(A) , No pain 9:45:42 61 18 95 25.8 127/78(97) NSR 0 (11) 9(A) , No pain 9:49:50 66 19 95 1.5 98/70(91) NSR 0 (11) 9(A) , No pain 9:53:56 60 19 92 0 103/70(80) NSR 0 (11) 9(A) , No pain 9:58:04 59 20 95 31.1 112/69(88) NSR 0 (11) 9(A) , No pain 10:02:14 60 11 98 0 105/68(81) NSR 0 (11) 9(A) , No pain Medications Time Medication Route Dose Verified Delivered Reason Notes Effectiveness by by 9:24:32 Oxygen NC 2 l/min Gregoria Gregoria used for Avalos Avalos tread booker RN 9:24:38 Lidocaine 2% added 20ml Gregoria Gregoria used for to vial Avalos Avalos procedure field RN RN 9:24:48 Heparin Flush added 2 bags Gregoria Gregoria used for Bag to Avalos Avalos procedure (1000units/500ml field RN RN NS) 9:24:55 Radial Cocktail added 1 Gregoria Gregoria used for (Verapomil to syringe Avalos Avalos procedure 2mg/Nitro field RN RN 400mcg/Heparin 1500units) 9:39:24 Fentanyl I.V. 50 mcg Gregoria Gregoria for sedation Avalos Avalos RN RN 9:39:33 Versed I.V. 1 mg Gregoria Gregoria for sedation Avalos Avalos RN RN 9:46:25 Radial Cocktail I.A. 1 Gregoria Heladio for (Verapomil syringe Avalos Tauth MD vasodilation 2mg/Nitro RN 400mcg/Heparin 1500units) 9:47:02 Fentanyl I.V. 25 mcg Gregoria Gregoria for sedation Avalos Avalos RN RN 9:47:06 Versed I.V. 0.5 mg Gregoria Gregoria for sedation Avalos Avalos RN RN 9:50:00 Heparin Bolus I.V. 4000 Gregoria Gregoria for units Avalos Avalos anticoagulation RN RN 9:58:01 Plavix P.O. 75 mg Gregoria Gregoria for Avalos Avalos antiplatelet RN RN therapy Procedure Log Time Note 9:04:17 Diagnostic Cath Status : Elective 9:05:40 Kacie Muller RT(R) sent for patient. Start room use. 9:05:42 Time tracking: Regular hours 9:05:47 Plan of Care:Hemodynamics will remain stable., Cardiac rhythm will remain stable., Comfort level will be maintained., Respiratory function will remain adequate., Patient/ family verbilizes understanding of procedure., Procedure tolerated without complication., Recovers from procedure without complications.. 9:15:05 Patient received from Pre/Post Procedure Room to [facility] 2 Alert and oriented. Tansferred to table in Supine position. 9:15:06 Warm blankets applied, and toyin hugger turned on for patient comfort. 9:15:06 Correct patient and procedure confirmed by team. 9:15:07 Signed procedure consent form obtained from patient. 9:15:08 ECG and BP/O2 sat monitors applied to patient. 9:15:09 Full Disclosure recording started 9:19:21 Vital chart was started 9:19:50 Baseline sample Acquired. 9:19:58 Rhythm: sinus rhythm 9:20:10 H&P Date Dictated: 07/30/2017 New H&P dictated by physician.. 9:20:12 Pre-procedure instructions explained to patient. 9:20:12 Pre-op teaching completed and patient verbalized understanding. 9:20:14 Family in waiting room. 9:20:16 Patient NPO since Midnight. 9:24:32 Oxygen 2 l/min NC was administered by Gregoria Avalos RN; used for procedure; 9:24:38 Lidocaine 2% 20ml vial added to field was administered by Gregoria Avalos RN; used for procedure; 9:24:48 Heparin Flush Bag (1000units/500ml NS) 2 bags added to field was administered by Gregoria Avalos RN; used for procedure; 9:24:55 Radial Cocktail (Verapomil 2mg/Nitro 400mcg/Heparin 1500units) 1 syringe added to field was administered by Gregoria Avalos RN; used for procedure; 9:26:22 Patient allergic to Penicillins 9:26:24 Is the patient allergic to Iodine/contrast media? No. 9:26:26 Is patient on blood thinner?Yes 9:26:29 ACC The patient was administered the following blood thiners within the last 24 hours: ACCPlavix 9:26:30 Patient diabetic? No. 9:26:33 Previous problem with sedation/anesthesia? No ? 9:26:34 Snore? Yes 9:26:35 Sleep apnea? No 9:26:36 Deviated septum? No 9:26:36 Opens mouth fully? Yes 9:26:37 Sticks out tongue? Yes 9:26:41 Airway obstruction? Yes A sthma 9:26:44 Dentures? No ? 9:26:48 Pre procedure: right dorsailis pedis pulse 2+ Normal; easily identifiable; not easily obliterated 9:26:49 Modified Tyrese's test Ulnar < 7 seconds 9:26:51 Patient pain scale 0/10 ?. 9:26:57 IV patent on arrival in left hand with 0.9% NaCl at [facility]. 9:27:07 Lab results completed and on chart. 9:27:09 Right Radial & Right Groin area was prepped with chlora-prep and draped in sterile fashion 9:27:10 Alarms reviewed by R. N. 9:27:10 Sharps counted by scrub and verified by R.N. 9:32:06 Use device set Radial Dx 9:32:07 Acist Syringe opened to sterile field. 9:32:08 Medline Cath Pack opened to sterile field. 9:32:08 Bag Decanter opened to sterile field. 9:32:09 Terumo 6Fr Slender Glidesheath opened to sterile field. 9:32:09 St Paul 260cm J .035 wire opened to sterile field. 9:32:10 Acist Hand Control opened to sterile field. 9:32:10 Acist Manifold opened to sterile field. 9:32:11 Tegaderm 4 x 4 opened to sterile field. 9:32:12 MBrace Wrist Support opened to sterile field. 9:32:59 Zero performed for pressure channel P1 9:37:45 Final Timeout: patient, procedure, and site verified with staff and physician. All members of the team are in agreement. 9:38:05 Right Radial site verified by team. 9:38:08 Physical assessment completed. ASA score P 2 - A patient with mild systemic disease as per Heladio Allen MD. 9:38:11 Sedation plan: IV Moderate Sedation Versed, Fentanyl 9:39:24 Fentanyl 50 mcg I.V. was administered by Gregoria Avalos RN; for sedation; 9:39:33 Versed 1 mg I.V. was administered by Gregoria Avalos RN; for sedation; 9:44:47 Procedure started. 9:44:51 Local anesthetic to right radial artery with Lidocaine 2% by Heladio Allen MD.INITIAL ACCESS ONLY 9:45:49 A 6 Fr Short sheath was inserted into the Right Radial artery 9:46:22 A Terumo 5Fr Pako 110cm catheter was advanced over the wire and used for LV Angiography. 9:46:25 Radial Cocktail (Verapomil 2mg/Nitro 400mcg/Heparin 1500units) 1 syringe I.A. was administered by Heladio Allen MD; for vasodilation; 9:47:00 LV gram done using BURR 9:47:02 Fentanyl 25 mcg I.V. was administered by Gregoria Avalos RN; for sedation; 9:47:03 Injector settings: Ml/sec: 5, Volume: 15, 9:47:06 Versed 0.5 mg I.V. was administered by Gregoria Avalos RN; for sedation; 9:47:11 EF : 55 % 9:47:28 A Terumo 5Fr Pako 110cm catheter was advanced over the wire and used for Left Coronary Angiography. 9:48:23 A Terumo 5Fr Pako 110cm catheter was advanced over the wire and used for Right Coronary Angiography. 9:49:06 Catheter removed. 9:49:27 Topete Whisper J 300cm 0.014 guide wire opened to sterile field. 9:49:28 Cordis 6FR XBLAD 3.5 guide catheter opened to sterile field. 9:49:28 TranSwitch BasixCompak Inflation Kit opened to sterile field. 9:49:49 6 Fr XBLAD 3.5 guide catheter was inserted over the wire 9:50:00 Heparin Bolus 4000 units I.V. was administered by Gregoria Avalos RN; for anticoagulation; 9:50:41 Whisper wire advanced. 9:52:44 Inflation number: 1 A Euphora 2.5 x 20 Balloon was prepped and advanced across the 1st Diag, then inflated to 11 GERI for 0:07 (min:sec). 9:53:02 Inflation number: 2 The Euphora 2.5 x 20 Balloon was reinflated across the 1st Diag, to 13 GERI for 0:09 (min:sec). 9:53:19 Balloon removed over the wire. 9:54:42 Inflation Number: 3 A Bee OTW 2.5 x 22 stent was prepped and advanced across the 1st Diag. The stent was deployed at 11 GERI for 0:06 (min:sec). 9:55:00 Wire redirected to LAD. 9:55:16 Inflation number: 1 The stent balloon was then re-inflated across the Mid LAD to 21 GERI for 0:06 (min:sec). 9:55:47 Stent catheter was removed intact over wire. 9:55:47 Wire removed. 9:55:47 Guide catheter removed. 9:55:55 Sheath removed intact; hemostasis achieved with Mechanical Compression to the Right Radial artery. 9:56:00 Terumo TR Band Standard opened to sterile field. 9:56:03 Procedure ended.(Physican Out) 9:56:15 Fluoroscopy time 04.20 minutes. 9:56:18 Fluoroscopy dose: 780 mGy 9:56:18 Flurop Dose total: 780 9:56:21 Contrast amount:Isovue 300 99ml. 9:56:22 Sharps counted by scrub and verified by R.N. 9:56:24 TR band inflated with 10cc of air. 9:56:25 Insertion/operative site no bleeding no hematoma. 9:56:29 Post right radial artery:stable, clean and dry 9:56:31 Post Procedure Pulses reassessed and unchanged 9:56:34 Post-procedure physical assessment completed. ASA score P 2 - A patient with mild systemic disease as per Heladio Allen MD. 9:56:39 Post procedure rhythm: unchanged. 9:56:45 Estimated blood loss: 10 ml 9:56:47 Post procedure instruction explained to patient.Patient verbalizes understanding. 9:56:47 Patient needs reinforcement of post procedure teaching. 9:57:00 Procedure type changed to Cath procedure, Diagnostic procedure, LHC, LHC w/Coronaries, PCI procedure, Coronary Stent Initial, PTCA Additional, Miscellaneous Procedures, Moderate Sedation up to 30 minutes 9:57:04 Procedure Complication : No complications 9:57:06 See physician's report for complete and final results. 9:58:01 Plavix 75 mg P.O. was administered by Gregoria Avalos RN; for antiplatelet therapy; 9:58:28 Procedure and supply charges have been captured, reviewed, submitted and are correct. 10:02:19 Vital chart was stopped 10:02:21 Report given to Pre/Post Procedure Room. 10:02:25 Patient transfered to Pre/Post Procedure Room with Stretcher. 10:02:26 Procedure ended. 10:02:26 Full Disclosure recording stopped 10:02:50 End room use (Document Last) Intervention Summary Intervention Notes Time ActionType Lesion and Equipment Action# Pressure Duration Attributes Used 9:52:44 Inflate 1st Diag Euphora 1 11 00:07 balloon 2.5 x 20 Balloon 9:53:02 Reinflate 1st Diag Euphora 2 13 00:09 balloon 2.5 x 20 Balloon 9:54:42 Place stent 1st Diag Bee OTW 3 11 00:06 2.5 x 22 stent 9:55:16 Reinflate Mid LAD Marco Antonio OTW 1 21 00:06 stent 2.5 x 22 balloon stent Device Usage Item Name Manufacture Quantity Catalog Hospital Part Current Minimal Lot# / Number Charge Number Stock Stock Serial# Code Acist Acist 1 [id number] [id number] 207695 786881 20 Syringe Medical Systems Inc Medline Cardinal 1 [id number] [id number] 00883 683917 5 Cath Pack Health Bag Microtek 1 2002S 510302 94602 865602 5 Obeo Inc. Terumo 6Fr Terumo 1 [id number] 894439 628731 050424 [address] [facility] 1 674244 821234 018720 672737 30 260cm J .035 wire Acist Hand Acist 1 81532 228533 906191 824680 5 Control Medical Systems Inc Acist Acist 1 38014 118188 931099 047693 5 Manifold Medical Systems Inc Tegaderm 4 3M 1 1626W 371199 713125 179924 5 x 4 MBrace Advanced 1 140-0250-00 035182 92893 624788 5 Wrist Vascular Support Dynamics Terumo 5Fr Terumo 1 41-4936 118146 189047 289588 5 Pako 110cm catheter Topete Topete 1 [id number] 274712 507725 883751 5 Whisper J Vascular 300cm 0.014 guide wire Cordis 6FR Cardinal 1 [id number] 008230 475275 689662 10 XBLAD 3.5 Health guide catheter Merit Merit 1 [id number] 684771 730162 911169 15 Kuotus Medical Inflation Kit Euphora 2.5 Medtronic 1 [id number] 744410 386804 704307 5 [id number] x 20 Balloon Bee OTW Medtronic 1 [id number] 010002 02718 015105 5 [id number] 2.5 x 22 stent Terumo TR Terumo 1 [id number] 747434 357670 876555 40 Band Standard Signature Audit [place] Stage Time Signature Unsigned Intra-Procedure 07/30/2017 Nancy 10:03:02 AM Counts RT(R) Signatures Monitor : Nancy Signature : Counts RT Date : Time : [address] [place] [address]
[2017-07-30 08:22] VITALS: BP 146/83; BMI 27.2
[2017-07-30 08:47] LABS: ANION GAP 14.2 mmol/L (8-16); CALCIUM 9.8 mg/dL (8.5-10.1); CARBON DIOXIDE 30.3 mmol/L (21.0-32.0); CREATININE - SERUM 1.5 mg/dL (0.6-1.3); POTASSIUM - SERUM 3.5 mmol/L (3.5-5.1)
[2017-07-30 09:34] LABS: BASOPHILS 0.3 % (0-2); EOSINOPHILS 3.2 % (0-7); HEMATOCRIT 47.1 % (42.0-54.0); HEMOGLOBIN 16.1 g/dL (13.5-17.5); IMMATURE GRANULOCYTES 0.5 % (0-5); LYMPHOCYTES 19.3 % (15-50); MCH 29.9 pg (26.0-34.0); MCHC 34.2 g/dL (31.0-37.0); MCV 87.4 fL (80.0-100.0); MEAN PLATELET VOLUME 10.8 fL (7.4-10.4); MONOCYTES 6.7 % (2-11); PLATELET COUNT 217 10x3/uL (130-400); RBC 5.39 10x6/uL (4.20-6.10); RDW 14.2 % (11.5-14.5); WBC 7.9 10x3/uL (4.8-10.8)
--- NOTE | 2017-07-30 10:15 | NUR ---
1015 RECIEVED TO ROOM VIA STRETCHER FROM DAY TRADER WITH REPORTS OF ONE STENT TO THE DIAG AND BALLOON TO THE LAD. TR BAND TO R/WRIST CDI NO BLEEDING NO HEMATOMA NOTED. VSS WITH CHEST PAIN DENIED
--- NOTE | 2017-07-30 10:40 | NUR ---
TR BAND REMAINS TO R/WRIST CDI NO BLEEDING NO HEMATOMA NOTED. VSS WITH CHEST PAIN DENIED. DR TILLMAN AT BEDSIDE
--- NOTE | 2017-07-30 11:00 | NUR ---
VSS WITH CHEST PAIN DENIED TR BAND REMAINS TO R/WRIST CDI NO BLEEDING NO HEMATOMA NOTED. FAMILY AT SIDE
--- NOTE | 2017-07-30 11:21 | NUR ---
SB 56 CHEST PAIN DENIED BP 96/67 WITH TR BAND TO R/WRIST CDI NO DISTRESS NOTED
--- NOTE | 2017-07-30 11:54 | NUR ---
SITTING WITH HOB UP 30 DEGREES CHEST PAIN DENIED WITH TR BAND TO R/WRIST CDI NO BLEEDING NO HEMATOMA NEEDS DENIED
--- NOTE | 2017-07-30 12:28 | NUR ---
DENIED PAIN OR NEEDS AT THIS TIME VSS WITH TR BAND IN PLACE TO R/WRIST
--- NOTE | 2017-07-30 12:49 | NUR ---
3 CC AIR REMOVED FROM TR BAND WITH NO BLEEDING NO HEMATOMA NOTED
--- NOTE | 2017-07-30 13:04 | NUR ---
3 CC AIR REMOVED FROM TR BAND WITH NO BLEEDING NO HEMATOMA NOTED
--- NOTE | 2017-07-30 13:24 | NUR ---
3 CC AIR REMOVED FROM TR BAND WITH NO BLEEDING NOTED
--- NOTE | 2017-07-30 13:53 | NUR ---
3 CC AIR REMOVED FROM TR BAND WITH NO BLEEDING NO HEMATOMA NOTED. PIV REMOVED WITH DRESSING APPLIED. VERBAL AND WRITTEN DISCHARGE GONE OVER WITH PATIENT AND . CHEST PAIN DENIED WITH VSS PATIENT UP TO GET DRESSED FOR DISCHARGE HOME
--- NOTE | 2017-07-30 14:12 | NUR ---
VERBAL AND WRITTEN DISCHARGE GONE OVER WITH PATIENT AND BOTH VERBALIZED UNDERSTANDING. TR BAND REMOVED WITH NO BLEEDING NO HEMATOMA NOTED. DRESSING APPLIED. PATIENT LEFT VIA WC TO PARKING FOR TRANSPORT HOME NO DISTRESS
--- NOTE | 2017-08-10 16:56 | OP ---
PATIENT NAME: MARINA CRANDALL MEDICAL RECORD: [id number] :48 LOCATION:D.CAT ADMISSION DATE: SURGEON: DORIS TILLMAN MD DATE OF OPERATION: 07/30/2017 PROCEDURES: 1. PTCA stent to LAD diagonal. 2. PTCA to LAD. 3. Left heart catheterization. 4. Selective coronary angiography. 5. Left ventriculogram. INDICATION: Angina and coronary artery disease. PROCEDURE IN DETAIL: After informed consent was obtained, and after a detailed explanation of the risks, benefits as well as alternative therapies, the patient elected to proceed with angiogram and angioplasty. The right radial area was prepped and draped in normal sterile fashion. The right radial artery was cannulated via modified Seldinger technique with placement of 6-Comoran sheath. All catheters exchanged through this sheath. FINDINGS: The left ventriculogram was performed in standard 30-degree BURR view, reveals good cardiac wall motion throughout all segments. Overall ejection fraction estimated at 60%. SELECTIVE CORONARY ANGIOGRAPHY: 1. Left main showed no significant angiographic disease. 2. Left anterior descending has previously placed stents. The LAD diagonal has 90% stenosis. This is not stented. The LAD itself does have up to 70% in-stent restenosis. 3. Left circumflex has moderate irregularities, but no flow-limiting stenosis. Previously placed stents are widely patent. 4. Right coronary has [id number] irregularities, but no flow-limiting stenosis. PTCA STENT OF THE LAD DIAGONAL: The stent used was a 2.5 x 22 mm Clayton system balloon was then taken to the LAD and inflated to 21 atmospheres. Result was 0% residual throughout. OVERALL IMPRESSION: Successful percutaneous transluminal coronary angioplasty stent of the left anterior descending diagonal going from 90% initial stenosis to 0% residual stenosis. TRANSINT:[id number] Voice Confirmation ID: [id number] DOCUMENT ID: [id number] DORIS TILLMAN MD at 1656 CC: [id number] DICTATION DATE: 07/30/17 0959 SURVEILLANCE SYSTEM MONITOR: 07/30/17 1201 DEP CLI 07/30/17 [id number] [place] [address]
== END | disposition home or self-care (01) ==
LOC: D.CATH 08:00
PROVIDERS: Internal Medicine Interventional Cardiology
DX: I25.119 Atherosclerotic heart disease of native coronary artery with unspecified angina pectoris (principal); Z01.812 Encounter for preprocedural laboratory examination
CPT/HCPCS: 93458; C9600